=== PATIENT | female | born 1995 | race African-American/Black ===

== ENCOUNTER 2022-03-31 17:24 | Emergency (ER) | payer MEDICAID ==
[2022-03-31 18:00] LABS: BASOPHILS % (AUTO) 0.3 %; EOSINOPHILS % (AUTO) 0.2 %; HCT - HEMATOCRIT 41.4 % (37.0-47.0); HGB - HEMOGLOBIN 13.1 g/dL (12.0-16.0); LYMPHOCYTES # (AUTO) 2.3 10^3/uL (1.5-3.5); LYMPHOCYTES % (AUTO) 39.3 %; MEAN CORPUSCULAR HEMOGLOBIN 28.7 pg (27.0-31.0); MEAN CORPUSCULAR HGB CONC 31.6 g/dL (32.0-36.0); MEAN CORPUSCULAR VOLUME 90.6 fL (81.0-99.0); MEAN PLATELET VOLUME 9.9 fL (7.9-10.8); MONOCYTES # (AUTO) 0.4 10^3/uL (0.0-1.0); NEUTROPHILS # (AUTO) 3.2 10^3/uL (1.5-6.6); PLT - PLATELET COUNT 303 10^3/uL (130-450); RED BLOOD COUNT 4.57 10^6/uL (4.20-5.40); RED CELL DISTRIBUTION WIDTH 13.8 % (12.0-15.0)
[2022-03-31] MEDS ORDERED: iohexoL-300 100 ML VIAL ONE (18:08)
--- NOTE | 2022-03-31 18:09 | ED Physician Documentation ---
History of Present Illness - Stated complaint Stated Complaint: ABD PX,NAUSEA - Chief complaint Chief Complaint: Abd Pain - Additonal information Additional information: 27-year-old female presents emergency department for evaluation of intermittent abdominal pain that began a number of months ago. Symptoms initially began in early June 2021 for which she was hospitalized in [place]. Reportedly had "fluid in her belly and an ovarian cyst." She was to f/u with OB, but did not as she does not like doctors. She states he she has the pain every day sometimes worse with movement. Denies possibility of . She did undergo a number of abdominal surgeries in infancy and when she was a child but again the personal history and etiology is unclear. Very well appearing at the time of my exam. takes no rx meds. Review of Systems Constitutional: denies: Fever, Chills Eyes: reports: Reviewed and negative Throat: reports: Reviewed and negative Cardiac: reports: Reviewed and negative Respiratory: reports: Reviewed and negative GI: reports: Abdominal Pain, Nausea. denies: Vomiting, Constipation, Diarrhea, Hematemesis : reports: Frequency. denies: Dysuria Skin: reports: Reviewed and negative Musculoskeletal: reports: Reviewed and negative Neurologic: reports: Reviewed and negative PD PAST MEDICAL HISTORY - Present Medications Home Medications: Ambulatory Orders Medication Instructions Recorded Confirmed No Known Home Medications 03/31/22 03/31/22 - Allergies Allergies/Adverse Reactions: Allergies Allergy/AdvReac Type Severity Reaction Status Date / Time No Known Drug Allergies Allergy Verified 03/31/22 17:37 PD ED PE NORMAL - General General: Alert and oriented X 3, No acute distress, Well developed/nourished - HEENT HEENT: Atraumatic, Moist mucous membranes - Neck Neck: Supple, no meningeal sign, No adenopathy - Cardiac Cardiac: RRR, No murmur - Respiratory Respiratory: No respiratory distress, Clear bilaterally - Abdomen Abdomen: Normal bowel sounds, Soft. 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, No motor deficit Eye Opening: Spontaneous Motor: Obeys Commands Verbal: Oriented GCS Score: 15 Results - Vitals Vitals: Vital Signs - 24 hr 03/31/22 03/31/22 03/31/22 17:32 19:37 22:27 Temperature 36.7 C Heart Rate 64 65 66 Respiratory 18 18 18 Rate Blood Pressure 118/95 H 95/83 H 106/72 O2 Saturation 98 100 100 Oxygen O2 Source Room air - Labs Labs: Laboratory Tests 03/31/22 03/31/22 03/31/22 17:54 17:54 17:54 WBC 6.0 RBC 4.57 Hgb 13.1 Hct 41.4 MCV 90.6 MCH 28.7 MCHC 31.6 L RDW 13.8 Plt Count 303 MPV 9.9 Neut # (Auto) 3.2 Lymph # (Auto) 2.3 [place] # (Auto) 0.4 Eos # (Auto) 0.0 Baso # (Auto) 0.0 Absolute Nucleated RBC 0.00 Nucleated RBC % 0.0 Sodium 137 Potassium 3.6 Chloride 100 L Carbon Dioxide 26 Anion Gap 11.0 BUN 14 Creatinine 0.8 Estimated GFR (MDRD) 104 Glucose 96 Calcium 10.6 H Total Bilirubin 0.6 AST 15 ALT 11 Alkaline Phosphatase 50 Total Protein 8.0 Albumin 4.8 Globulin 3.2 Albumin/Globulin Ratio 1.5 Lipase 25 CA 125 Antigen 46.6 H Urine Color Urine Clarity Urine pH Ur Specific [place] Urine Protein Urine Glucose (UA) Urine Ketones Urine Occult Blood Urine Nitrite Urine Bilirubin Urine Urobilinogen Ur Leukocyte Esterase Ur Microscopic Review Urine Culture Comments Urine HCG, Qual 03/31/22 18:05 WBC RBC Hgb Hct MCV MCH MCHC RDW Plt Count MPV Neut # (Auto) Lymph # (Auto) [place] # (Auto) Eos # (Auto) Baso # (Auto) Absolute Nucleated RBC Nucleated RBC % Sodium Potassium Chloride Carbon Dioxide Anion Gap BUN Creatinine Estimated GFR (MDRD) Glucose Calcium Total Bilirubin AST ALT Alkaline Phosphatase Total Protein Albumin Globulin Albumin/Globulin Ratio Lipase CA 125 Antigen Urine Color YELLOW Urine Clarity CLEAR Urine pH 6.0 Ur Specific [place] 1.020 Urine Protein NEGATIVE Urine Glucose (UA) NEGATIVE Urine Ketones 15 H Urine Occult Blood NEGATIVE Urine Nitrite NEGATIVE Urine Bilirubin NEGATIVE Urine Urobilinogen 0.2 (NORMAL) Ur Leukocyte Esterase NEGATIVE Ur Microscopic Review NOT INDICATED Urine Culture Comments NOT INDICATED Urine HCG, Qual NEGATIVE - Rads (name of study) CT abd Radiology: Final report received (Exudative assess ascites appears present within the peritoneal space. Complex left adnexal masslike structure measuring up to 3.2 cm. Peritoneal carcinomatosis is a potential etiology) PD MEDICAL DECISION MAKING - ED course Complexity details: reviewed results, re-evaluated patient, considered differential, d/w patient, d/w family, d/w residential solar sales consultant (Viviane) ED course: This is a 27-year-old female that presents the emergency department for evaluation of ongoing lower abdominal pain mostly right-sided. Patient is a very poor historian but reports to me that she was hospitalized in early June while she lived in [place]. She is unsure what the diagnosis was but does report that she had a lot of fluid in her abdomen and perhaps an ovarian cyst. She admits that she did not follow-up as recommended following the hospitalization as she does not like doctors. She came to the emergency department today with her cousin as she recently moved to [facility]. On presentation she is alert and very well-appearing. Unremarkable vitals. No fevers. Abdominal exam showed focal tenderness in the right lower quadrant. I was mostly suspicious for an acute appendicitis versus recurrent ovarian cysts. CBC and electrolytes obtained today were essentially unremarkable. However subsequent CT imaging completed does show very large amount of exudative left- sided ascites with a 2.3 cm ovarian mass. This is highly suspicious for carcinoma and/or peritoneal carcinomatosis as it potential etiology. I discussed the case with the on-call radiologist and he made the recommendation for pelvic ultrasound for better differentiation of the ovarian/adnexal mass. This has been ordered. though there is a large amount of exudative ascites, there was nothing to suggesting bowel obstruction, bowel perforation, or acute appendicitis. I did speak with the on-call coverstitch elastic attacher Dr. Pan. She requested that we send a CA125. If this is in fact an ovarian or peritoneal cancer she will need to be referred to a social sciences professor/onc. She reported that the office would contact the patient on Saturday to either schedule an appointment or make an appropriate referral. 2214: Per the medical technologist the pelvic ultrasound reveals a very nodule her left ovary floating and a lot of fluid but nothing to suggest a torsion. These findings were discussed with the patient and her cousin at the bedside. They understand that a CA125 is pending. They will follow-up closely with [facility]. Emergent return precautions were discussed for worsening symptoms Departure - Departure Disposition: Home, Self Care Clinical Impression: Mass of left ovary Abdominal ascites Qualifiers: Ascites type: other type Qualified Code(s): R18.8 - Other ascites Follow-Up: Edel Pan DO [Provider Admit Priv/Credential] - Haritha Damon PA-C [Provider Admit Priv/Credential] - Comments: You are seen today in the emergency department because you have been having some pain in your lower abdomen this been ongoing for months. You reported to me that you were hospitalized in June while in [place] and were told that you had fluid in your belly. Today in the emergency department your labs were essentially normal. However the CT scan did show a large amount of fluid within your abdomen. This is called ascites. It looks likely that the ascites is coming from an ovarian mass. This can be a form of cancer. We have briefly discussed this case with the coverstitch elastic attacher on-call today. We are awaiting 1 lab result to come back over the weekend. This is a lab that can help us further define whether this is a cancer or not. The gynecology office will give you a call Saturday to discuss the result. If this is cancer you will need to be referred to a coverstitch elastic attacher that specializes in cancer and will then need a referral. I have given you the name of Haritha Coy she is the PA assigned to ER follow-ups in the upcoming week. I do make the recommendation that you call that clinic on Saturday to help arrange follow-up visit will be important part in the referral process. Discharge Date/Time: 03/31/22 22:27
[2022-03-31 18:16] LABS: ALBUMIN 4.8 g/dL (3.2-5.5); ALBUMIN/GLOBULIN RATIO 1.5 (1.0-2.2); BILIRUBIN,TOTAL 0.6 mg/dL (0.2-1.0); CALCIUM 10.6 mg/dL (8.5-10.3); CREATININE 0.8 mg/dL (0.4-1.0); POTASSIUM 3.6 mmol/L (3.5-5.0)
[2022-03-31 18:19] LABS: BILIRUBIN,URINE NEGATIVE (NEGATIVE); GLUCOSE, URINE (UA) NEGATIVE (NEGATIVE); KETONES,URINE (UA) 15 mg/dL (NEGATIVE); LEUKOCYTE ESTERASE, URINE NEGATIVE (NEGATIVE); NITRITE,URINE NEGATIVE (NEGATIVE); OCCULT BLOOD,URINE NEGATIVE (NEGATIVE); PROTEIN,URINE NEGATIVE (NEGATIVE); UROBILINOGEN,URINE 0.2 (NORMAL) E.U./dL (NORMAL)
[2022-03-31 18:21] LABS: CLARITY,URINE CLEAR (CLEAR); HCG UR QUAL NEGATIVE
[2022-03-31] MEDS ORDERED: iohexoL-300 100 ML VIAL IVP ONE (19:50)
[2022-03-31] MEDS ORDERED: ONDANSETRON 4 MG/2 ML VIAL IVP STA (19:58)
--- NOTE | 2022-03-31 20:01 | CT Report ---
PROCEDURE: ABDOMEN/PELVIS W INDICATIONS: RLQ abd pain intermittent for months CONTRAST: 100 ml omni 300 TECHNIQUE: After the administration of contrast, 5 mm thick sections acquired from the diaphragms to the sym physis. 5 mm thick coronal and sagittal reformats were acquired. For radiation dose reduction, the following was used: automated exposure control, adjustment of mA and/or kV according to patient size . COMPARISON: None. FINDINGS: Image quality: Excellent. ABDOMEN: Lung bases: Lung bases are clear. Heart size is normal. Solid organs: Liver and spleen are normal in size and enhancement. Gallbladder appears normal Bili cipriano system is non dilated. Pancreas enhances normally. No adrenal nodules. Kidneys demonstrate nor mal size and enhancement, without hydronephrosis. Peritoneum and bowel: Bowel loops demonstrate normal wall thickness and caliber. There is significan t abnormal free fluid but no free air, and the free fluid within the peritoneal space is greater on t he left than the right in the abdomen and equivalent right and left within the pelvis. There is a sub tle pattern of peritoneal enhancement and slight thickening, potentially a manifestation of peritonea l inflammation or carcinomatosis. No peritoneal nodules are seen. Nodes and vessels: No retroperitoneal or mesenteric adenopathy by size criteria. Aorta and inferior vena cava are normal in size. Miscellaneous: No ventral hernias. PELVIS: Genitourinary: Bladder wall thickness is normal. Note is made of what appears to be a moderately co mplex structure at the left adnexa, which measures up to 3.0 x 3.2 cm. This could represent evidence of left ovarian neoplasm. Miscellaneous: No inguinal hernias or adenopathy. Bones: No suspicious bony lesions. No vertebral body compression fractures. IMPRESSION: Exudative ascites appears present within the peritoneal space in the setting of a left c omplex adnexal masslike structure measuring up to 3.2 cm in maximal dimension. This is associated wit h relative deviation of the midline uterus to the right. Peritoneal carcinomatosis is a potential sarah ology of this constellation of findings. Pelvic ultrasound likely is warranted for more accurate assessment of the left adnexa. Reviewed by: Murray Birmingham MD on 03/31/2022 8:00 PM PDT Approved by: Murray Birmingham MD on 03/31/2022 8:00 PM PDT Station ID: [id number]
--- NOTE | 2022-03-31 22:26 | Ultrasound Report ---
PROCEDURE: Pelvic w/Transvag+Doppler Comp INDICATIONS: ? ovarian mass mass TECHNIQUE: Real-time scanning was performed of the pelvic organs, with image documentation. Additional endovagi nal scanning was necessary due to incomplete visualization of the adnexal and endometrial structures by transabdominal scanning. Doppler interrogation was performed of the ovaries bilaterally. COMPARISON: None. FINDINGS: No pathologic free abdominal or pelvic fluid. Uterus: Uterus is normal in size at 3.9 x 4.5 x 7.8 cm. The endometrium measures 9.3 mm in combined thickness. Ovaries: The right ovary measures 2.1 x 1.1 x 2.4 cm and the left measures 4.7 x 2.7 x 3.2 cm. Note is made of the right ovarian volume is 28 cc but the left ovarian volume is 210 cc. There is a nodula r irregular shape to the left ovary, with adjacent ascites. A left ovarian cyst is present measuring up to 1.3 cm. Normal appearing arterial and venous waveforms are confirmed to each ovary.] Fallopian Tubes: Not dilated Cervix: Normal. Bladder: Normal appearance Other: There is abnormal complex free pelvic fluid. IMPRESSION: Prominent ascites is present within the peritoneal space as was seen during CT scanning earlier this evening. The fluid contains low-level internal echoes characteristic of "exudative ascit es". This can be produced by multiple etiologies but peritoneal carcinomatosis is a significant brady rn. The right ovary appears normal, the left ovary is enlarged, and has a nodular irregular marginati on gynecological consultation is recommended-significant likelihood of underlying neoplasm. Reviewed by: Murray Birmingham MD on 03/31/2022 10:25 PM PDT Approved by: Murray Birmingham MD on 03/31/2022 10:25 PM PDT Station ID: [id number]
[2022-03-31 22:28] VITALS: BP 106/72
== END 2022-03-31 22:27 | disposition home or self-care (01) ==
LOC: ED 17:24
DX: N83.8 Other noninflammatory disorders of ovary, fallopian tube and broad ligament (principal); R18.8 Other ascites
CPT/HCPCS: 36415; 74177; 76830; 76856; 80053; 81003; 81025; 83690; 85025; 86304; 93975; 96374; 99284; Q9967; 81001; 87086